=== PATIENT | female | born 1960 | race Caucasian/White ===

== ENCOUNTER 2016-12-30 18:45 | Observation (INO) | payer OTHER ==
[~2016-12-30] VITALS: Ht 162.6 cm; Wt 61.5 kg
[2016-12-30] MEDS ORDERED: TOPROL XL25 MG PO (19:00)
[2016-12-30] MEDS ORDERED: EFFIENT10 MG PO (19:01)
[2016-12-30] MEDS ORDERED: SYNTHROID100 MCG PO (19:02)
[2016-12-30] MEDS ORDERED: BAYER CHEWABLE81 MG PO (19:02)
[2016-12-30] MEDS ORDERED: CRESTOR5 MG PO (19:03)
[2016-12-30] MEDS ORDERED: OMEPRAZOLE20 M1 PO (19:04)
[2016-12-30] MEDS ORDERED: AUGMENTIN 875-11 TAB PO (19:05)
--- NOTE | 2016-12-30 19:10 | NUR ---
YASEMIN FROM [place]. ALERT AND ORIENTED. TELEMERTY SHOWS SR. ORIENTED TO ROOM. FAMILY AT BEDSIDE. DENIES ANY NEEDS
[2016-12-30 19:36] VITALS: BP 134/72
--- NOTE | 2016-12-30 20:04 | NUR ---
RESUMED CARE OF PT, LYING IN BED RESPIRATIONS EVEN AND UNLABOREDON ROOM AIR. 61 SR ON TELEMETRY. LEFT AC SALINE LOCKED. PLAN OF CARE DISCUSSED, CALL LIGHT IN REACH. WILL CONTINUE TO MONITOR. SEE NURSE ASSESSMENT.
[2016-12-30 20:14] LABS: CKMB 0.6 U/L (0.0-3.6); CREATINE KINASE 97 UL (21-215); TROPONIN-I < 0.017 ng/mL (0.000-0.060)
[2016-12-30 23:23] VITALS: BP 134/72; Ht 162.6 cm; Wt 61.5 kg
--- NOTE | 2016-12-31 00:30 | NUR ---
MINIBUS DRIVER AT BEDSIDE TO OBTAIN VITALS, CALL LIGHT IN REACH. WILL CONTINUE WITH PLAN OF CARE.
[2016-12-31 01:22] LABS: CKMB 0.7 U/L (0.0-3.6); CREATINE KINASE 99 UL (21-215)
[2016-12-31 01:25] LABS: TROPONIN-I < 0.017 ng/mL (0.000-0.060)
[2016-12-31 01:53] VITALS: BP 123/80
[2016-12-31 05:56] VITALS: BP 148/86
--- NOTE | 2016-12-31 07:53 | NUR ---
RESTING QUIETLY RESP UNLABORED DENIES ANY NEEDS OR DISCOMFORT AT THIS TIME NAD NOTED
[2016-12-31 08:00] VITALS: BP 130/59
[2016-12-31 08:16] LABS: CKMB 0.6 U/L (0.0-3.6); CREATINE KINASE 87 UL (21-215)
[2016-12-31 08:20] LABS: TROPONIN-I < 0.017 ng/mL (0.000-0.060)
--- NOTE | 2016-12-31 09:15 | NUR ---
PT REFUSED AM MEDS STATES TOOK OWN MEDS
--- NOTE | 2016-12-31 11:50 | NUR ---
PT STATES SHE IS LEAVING AND WANTS TO SIGN OUT. STATES I FEEL FINE I HAD AN ANGIOGRAM DONE IN MAY IT WAS FINE I AM HAVING NO PAIN I THINK IT WAS JUST MY STOMACH.
[2016-12-31 11:55] VITALS: BP 130/84
--- NOTE | 2016-12-31 11:55 | NUR ---
CALLED OFFICE AND NOTIFIED DR SANDERS PT WAS LEAVING AGAINST MEDICAL ADVICE PT SIGN AMA SHEET SALINE LOCK TO LAC DCD WITH 20 GA IV CATHETER INTACT SITE FREE OF REDNESS OR EDEMA
--- NOTE | 2016-12-31 12:10 | NUR ---
PT LEFT UNIT AMA WALKING WITH WITH ALL PERSONAL BELONGINGS
== END 2016-12-31 12:10 | disposition home or self-care (01) ==
LOC: D.M2 18:45 → OBSVTIME 18:46 → D.M2 12-31 12:10
PROVIDERS: ADMIT Internal Medicine Cardiovascular Disease
DX: R07.9 Chest pain, unspecified (principal); I25.10 Atherosclerotic heart disease of native coronary artery without angina pectoris; I10 Essential (primary) hypertension; Z95.5 Presence of coronary angioplasty implant and graft